=== PATIENT | female | born 1970 | race Caucasian/White ===

== ENCOUNTER 2021-11-14 13:55 | Outpatient (CLI) | payer SELFPAY ==
--- NOTE | 2021-11-14 13:58 | MM_ITS ---
WS: [id number] BILATERAL 3D TOMOSYNTHESIS DIGITAL SCREENING MAMMOGRAPHY WITH CAD CLINICAL INFORMATION: SCREENING HISTORY: Screening mammogram. No current complaints. COMPARISON: 2013 TECHNIQUE: Bilateral CC and MLO views. FINDINGS: Scattered fibroglandular densities bilaterally. No suspicious focal mass, asymmetry, calcifications, or architectural distortion. No evidence of malignancy. Incidental tiny punctate calcifications. MM/[place] [id number] IMPRESSION: BI-RADS: 2-Benign FOLLOW UP: 1 Year Follow-up Recommend return to annual screening mammography.
== END 2021-11-14 13:56 | disposition home or self-care (01) ==
PROVIDERS: PCP Family Medicine; Visit Provider Family Medicine
DX: Z12.31 Encounter for screening mammogram for malignant neoplasm of breast (principal)
CPT/HCPCS: 77063; 77067

== ENCOUNTER 2024-06-16 16:04 | Emergency (ER) | payer SELFPAY ==
[2024-06-16] VITALS (8 sets, daily range): BP systolic 128–155; BP diastolic 85–100; PULSE 66–79; RESP 15–18; TEMP 36.8; O2SAT 99–100; BMI 23.3
--- NOTE | 2024-06-16 16:15 | ECG_ITS ---
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 Measurements Intervals [place] Rate: 76 P: 67 DC: 181 QRS: 44 QRSD: 78 T: 55 QT: 351 QTc: 396 Interpretive Statements SINUS RHYTHM LOW QRS VOLTAGE IN PRECORDIAL LEADS [QRS DEFLECTION < 1.0 mV IN CHEST LEADS] INTERPRETATION BASED ON A DEFAULT AGE OF 40 YEARS No previous ECG available for comparison Electronically Signed On 06-18-2024 23:30:06 CDT by Shelby Lam M.D. [id number]
--- NOTE | 2024-06-16 16:19 | XRR_ITS ---
PROCEDURE INFORMATION: Exam: XR Chest Exam date and time: 06/16/2024 4:24 PM Age: 53 years old Clinical indication: Pain; Chest pressure; Additional info: Chest pain TECHNIQUE: Imaging protocol: Radiologic exam of the chest. Views: 1 view. COMPARISON: l spine FINDINGS: Lungs: No focal consolidation or other acute appearing pulmonary opacity. Pleural spaces: No pleural effusion or pneumothorax noted. Heart/Mediastinum: There is no cardiomegaly. Bones/joints: No acute osseous abnormality. Intraperitoneal space: There is no free intraperitoneal gas. Surgical clips in the left upper quadrant XR/XR chest 1V portable [id number] IMPRESSION: No acute findings.
[2024-06-16 17:08] LABS: Basophils # 0.1 10^3/uL (0.0-0.1); Basophils % 0.8 %; Eosinophils # 0.4 10^3/uL (0.0-0.8); Eosinophils % 6.2 %; Hematocrit 36.6 % (36-47); Lymphocytes # 1.3 10^3/uL (0.8-4.8); Lymphocytes % 19.2 %; Mean Corpuscular HGB Conc 32.2 g/dL (30-55); Mean Corpuscular Hemoglobin 29.8 pg (27-33); Mean Corpuscular Volume 92.4 fl (85-98); Mean Platelet Volume 9.7 fL (7.4-10.4); Monocytes # 0.4 10^3/uL (0.2-0.9); Monocytes % 6.2 %; Neutrophils # 4.49 10^3/uL (1.8-7.7); Neutrophils % 67.4 %; Nucleated Red Blood Cells % 0 %; Platelet Count 167 10^3/cmm (157-399); Red Blood Count 3.96 10^6/uL (3.85-5.65); Red Cell Distribution Width 12.7 % (12.1-15.1); White Blood Count 6.65 10^3/uL (3.29-11.43)
[2024-06-16 17:42] LABS: Troponin(5th) Baseline < 6 ng/L (0-10)
[2024-06-16 17:45] LABS: Alanine Aminotransferase 13 U/L (0-33); Albumin Level 4.2 g/dL (3.5-5.2); Alkaline Phosphatase 137 U/L (35-105); Anion Gap 16.8 (5-19); Aspartate Amino Transferase 17 U/L (0-32); Blood Urea Nitrogen 13 mg/dL (6-20); Calcium 8.8 mg/dL (8.5-10.5); Carbon Dioxide 25 mmol/L (22-29); Chloride 102 mmol/L (98-107); Globulin 2.2 g/dL (1.3-4.6); Glomerular Filtration Rate 65.2 mL/min (90-130); Glucose 80 mg/dL (65-115); Osmolality Calculated 289 mOsm/kg (285-295); Potassium 3.8 mmol/L (3.5-5.1); Sodium 140 mmol/L (136-145); Total Bilirubin 0.3 mg/dL (0.15-1.2); Total Protein 6.4 g/dL (6.6-8.7)
--- NOTE | 2024-06-16 18:20 | ECG_ITS ---
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 Measurements Intervals [place] Rate: 68 P: 62 NC: 114 QRS: 48 QRSD: 84 T: 56 QT: 390 QTc: 418 Interpretive Statements SINUS RHYTHM WITH SHORT NC INTERVAL LOW QRS VOLTAGE IN PRECORDIAL LEADS [QRS DEFLECTION < 1.0 mV IN CHEST LEADS] Compared to ECG 06/16/2024 16:15:19 Short NC interval now present Electronically Signed On 06-18-2024 23:41:49 CDT by Shelby Lam M.D. [id number]
[2024-06-16 19:31] LABS: Troponin 5 2HR < 6.0 ng/L (0-10); Troponin 5 2HR Delta 0 ABS# (0-10)
[2024-06-16 20:07] LABS: D Dimer 0.41 ug/mLFEU (0-0.59)
--- NOTE | 2024-06-16 20:26 | W.ED.CHESTPA ---
HPI - Chest Pain General: Chief Complaint: Chest Pain Stated Complaint: cp,sob Time Seen by Provider: 06/16/24 19:15 Source: patient History of Present Illness: Patient is a 53yo female presenting with acute onset chest pain that began today at 2:30 PM while walking from her car to a restaurant. She describes the pain as being located above her breast and along the breastbone, radiating to her back and occasionally up her neck. The pain is characterized as constant and dull with sharp exacerbation upon movement. She likens the sensation to muscle soreness as if from strenuous exercise. The patient reports mild associated shortness of breath initially, which has since improved. She denies nausea, vomiting, or distinct diaphoresis (though notes regular hot flashes due to menopause). Of significant concern, the patient reports two recent syncopal episodes over the past three weeks. The first occurred while standing in the bathroom doing makeup, and the second occurred last week while standing at her kitchen counter. Both episodes resulted in falls with head impact that caused immediate return to consciousness. She reports frequent lightheadedness but no clear prodrome before syncope. The patient has not sought medical attention for these episodes due to lack of insurance. Related Data Allergies Allergy/AdvReac Type Severity Reaction Status Date / Time No Known Allergies Allergy Verified 06/16/24 16:20 Physical Exam Const: COMMON NORMALS: no acute distress, average body habitus, alert and well nourished GENERAL APPEARANCE: cooperative ORIENTATION/CONSCIOUSNESS: Yes awake HENMT: COMMON NORMALS: normocephalic and atraumatic HEAD & SCALP: normocephalic and atraumatic Eye: COMMON NORMALS: conjunctivae normal CONJUNCTIVA: Yes conjunctivae normal Neck/C-Spine: GENERAL: Yes normal visual inspection Resp: COMMON NORMALS: normal respiratory effort, No retractions and No use of accessory muscles Cardio: COMMON NORMALS: regular rhythm and Peripheral pulses 2+ throughout RHYTHM: regular rhythm PERIPHERAL PULSES: Peripheral pulses 2+ throughout GI: COMMON NORMALS: Soft to palpation and non-tender PALPATION: Yes Soft to palpation Extremity: COMMON NORMALS: full ROM and no pedal edema Neuro: COMMON NORMALS: no focal motor deficits SENSORIUM/ORIENTATION: Yes alert Skin: COMMON NORMALS: no rashes or lesions noted GENERAL SKIN EXAM: no rashes or lesions noted Course Vital Signs: Vital signs: Vital Signs Temperature 98.2 F 06/16/24 16:11 Pulse Rate 71 06/16/24 20:46 Respiratory Rate 16 06/16/24 20:46 Blood Pressure 138/88 06/16/24 20:46 Pulse Oximetry 100 06/16/24 20:46 Oxygen Delivery Me thod Room Air 06/16/24 20:46 MDM - Chest Pain Medical Decision Making Review of Systems: Constitutional: Denies fever, reports episodes of syncope Cardiovascular: Positive for chest pain, denies prior cardiac history Respiratory: Reports mild dyspnea, now resolved Gastrointestinal: Denies abdominal pain, nausea, or vomiting Neurological: Reports lightheadedness All other systems reviewed and negative Medications: Lisinopril for hypertension Allergies: No known allergies Past Medical History: Hypertension Past Surgical History: Cholecystectomy Gastric sleeve surgery Unspecified childhood surgery Physical Exam: General: Well-appearing, no acute distress Cardiovascular: Regular rate and rhythm, normal heart sounds Respiratory: Lungs clear to auscultation bilaterally Lab Results: CBC: Within normal limits Chemistry panel: Unremarkable Troponin: Initial and delta both undetectable D-dimer: Pending Imaging and Other Relevant Results: Chest X-ray: No acute cardiothoracic findings EKG #1: Sinus rhythm at 68 bpm, short OR interval at 114ms, no ischemic ST changes EKG #2: Sinus rhythm at 76 bpm, low QRS voltage in precordial leads, normal axis, QTc 396ms, no ischemic changes Medical Decision Making: Summary Statement: Middle-aged female presenting with acute onset chest pain and recent history of unexplained syncope, requiring cardiac workup. Problem List: 1. Acute chest pain 2. Recurrent syncope 3. Hypertension Differential Diagnosis: 1. Acute coronary syndrome 2. Pulmonary embolism 3. Musculoskeletal chest pain 4. Cardiac arrhythmia 5. Orthostatic hypotension 6. Vasovagal syncope ED Course: Patient underwent comprehensive cardiac workup including serial EKGs, cardiac enzymes, chest X-ray, and basic labs. Pending D-dimer. Pain appears musculoskeletal in nature, but syncope requires further evaluation. Assessment and Plan: 1. Chest Pain: - Likely musculoskeletal based on characteristics and normal cardiac workup - Will complete D-dimer to rule out PE - Recommend NSAIDs and heat therapy 2. Syncope: - Concerning for cardiac etiology given lack of prodrome and frequency - Will attempt to arrange Holter monitor placement - Strong recommendation for outpatient cardiology follow-up 3. Hypertension: - Currently on Lisinopril - Encourage establishing primary care for ongoing management 4. Disposition: - Will determine based on D-dimer results and final ED course - Social work consult to assist with insurance resources Patient is D-dimer is normal. Chest x-ray is unremarkable. Troponin and delta troponin are normal. She reports feeling much better while here and has no chest pain on reassessment. I will go ahead and place an order for outpatient Holter monitor and have her follow-up with her primary care provider. Return precautions were provided. Lab Data I reviewed the patient's lab results. 06/16/24 16:59 06/16/24 16:59 Radiology Impressions Chest X-Ray 06/16/24 16:19 IMPRESSION: No acute findings. Laboratory Results WBC 6.65 10^3/uL (3.29-11.43) 06/16/24 16:59 RBC 3.96 10^6/uL (3.85-5.65) 06/16/24 16:59 Hgb 11.80 g/dL (11.27-16.99) 06/16/24 16:59 Hct 36.6 % (36-47) 06/16/24 16:59 MCV 92.4 fl (85-98) 06/16/24 16:59 MCH 29.8 pg (27-33) 06/16/24 16:59 MCHC 32.2 g/dL (30-55) 06/16/24 16:59 RDW 12.7 % (12.1-15.1) 06/16/24 16:59 Plt Count 167 10^3/cmm (157-399) 06/16/24 16:59 MPV 9.7 fL (7.4-10.4) 06/16/24 16:59 Neut % (Auto) 67.4 % 06/16/24 16:59 Lymph % (Auto) 19.2 % 06/16/24 16:59 [place] % (Auto) 6.2 % 06/16/24 16:59 Eos % (Auto) 6.2 % 06/16/24 16:59 Baso % (Auto) 0.8 % 06/16/24 16:59 Neut # (Auto) 4.49 10^3/uL (1.8-7.7) 06/16/24 16:59 Lymph # (Auto) 1.3 10^3/uL (0.8-4.8) 06/16/24 16:59 [place] # (Auto) 0.4 10^3/uL (0.2-0.9) 06/16/24 16:59 Eos # (Auto) 0.4 10^3/uL (0.0-0.8) 06/16/24 16:59 Baso # (Auto) 0.1 10^3/uL (0.0-0.1) 06/16/24 16:59 Nucleated RBC % (auto) 0 % 06/16/24 16:59 Nucleated RBCs # 0.0 /100WBC 06/16/24 16:59 D-Dimer 0.41 ug/mLFEU (0-0.59) 06/16/24 16:59 Sodium 140 mmol/L (136-145) 06/16/24 16:59 Potassium 3.8 mmol/L (3.5-5.1) 06/16/24 16:59 Chloride 102 mmol/L (98-107) 06/16/24 16:59 Carbon Dioxide 25 mmol/L (22-29) 06/16/24 16:59 Anion Gap 16.8 (5-19) 06/16/24 16:59 BUN 13 mg/dL (6-20) 06/16/24 16:59 Creatinine 0.9 mg/dL (0.5-0.9) 06/16/24 16:59 GFR Calculation 65.2 mL/min (90-130) L 06/16/24 16:59 Glucose 80 mg/dL (65-115) 06/16/24 16:59 Calculated Osmolality 289 mOsm/kg (285-295) 06/16/24 16:59 Calcium 8.8 mg/dL (8.5-10.5) 06/16/24 16:59 Total Bilirubin 0.3 mg/dL (0.15-1.2) 06/16/24 16:59 AST 17 U/L (0-32) 06/16/24 16:59 ALT 13 U/L (0-33) 06/16/24 16:59 Alkaline Phosphatase 137 U/L (35-105) H 06/16/24 16:59 Troponin T Baseline < 6 ng/L (0-10) 06/16/24 16:59 Troponin T 120 Minute < 6.0 ng/L (0-10) 06/16/24 19:04 Delta Troponin T 0 ABS# (0-10) 06/16/24 19:04 Total Protein 6.4 g/dL (6.6-8.7) L 06/16/24 16:59 Albumin 4.2 g/dL (3.5-5.2) 06/16/24 16:59 Globulin 2.2 g/dL (1.3-4.6) 06/16/24 16:59 All radiology interpretation(s) finalized by discharge Discharge Plan Discharge Patient Disposition: Home Clinical Impression: Chest pain, Syncope Condition: Stable Discharge Orders: Discharge ED (Routine); Ordered 06/16/24 Ordered By: Hardeep Fajardo Referrals: Rena Chua MD [Primary Care Provider, [facility]] Discharge Activity: Increase activity as tolerated Patient Instructions: Chest Pain (DC), Opioid Safety, Pain Management Activity Restrictions/Additional Instructions: Follow-up with a primary care provider as outpatient for further outpatient testing such as stress testing. Return to the ER for any new or worsening symptoms or any other concerns. Print Language: New Zealander Coding Level of Care Code ED Supervisor Type Bar And Segment for Lanre Noland
== END 2024-06-16 21:23 | disposition home or self-care (01) ==
PROVIDERS: Physician Assistant; Emergency Provider Student in an Organized Health Care Education/Training Program; PCP Family Medicine
DX: R07.9 Chest pain, unspecified (principal); R55 Syncope and collapse
CPT/HCPCS: 36415; 71045; 80053; 84484; 85025; 85378; 93005; 99285